=== PATIENT | female | born 1990 | race Caucasian/White ===

== ENCOUNTER → 2018-06-28 | Outpatient (REF) | payer OTHER | LOC: M SFHCLERA 13:41 | PROVIDERS: ATTEND Physician Assistant | DX: J02.9 Acute pharyngitis, unspecified (principal) ==

== ENCOUNTER 2018-09-23 12:05 | Outpatient (CLI) | payer OTHER ==
[~2018-09-23] VITALS: Ht 160 cm; Wt 94.4 kg
[2018-09-23 12:27] VITALS: BP 129/75
[2018-09-23] MEDS ORDERED: PRENTAB9 PO (12:53)
[2018-09-23] MEDS ORDERED: MAPA500T2 PO (12:53)
[2018-09-23 13:11] LABS: AMORPHOUS SEDIMENT SMALL (NEGATIVE); APPEARANCE, URINE CLOUDY (CLEAR); BACTERIA, URINE AUTO NEGATIVE (NEGATIVE); BILIRUBIN, URINE AUTO NEGATIVE (NEGATIVE); BLOOD, URINE BLOOD 3+ (NEGATIVE); COLOR, URINE YELLOW (YELLOW); GLUCOSE, URINE (UA) AUTO NEGATIVE (NEGATIVE); KETONE, URINE AUTO NEGATIVE (NEGATIVE); LEUKOCYTE ESTERASE, URINE AUTO TRACE (NEGATIVE); NITRITE, URINE AUTO NEGATIVE (NEGATIVE); PROTEIN, URINE AUTO NEGATIVE (NEGATIVE); RBC, URINE AUTO TNTC /HPF (0-3); SPECIFIC GRAVITY URINE AUTO 1.008 (1.002-1.035); SQUAMOUS EPITHELIAL CELL UR AU 10 /HPF (0-6); UROBILINOGEN, URINE AUTO 0.2 mg/dL (0.0-2.0); WBC, URINE AUTO 6 /HPF (0-3)
[2018-09-23] MEDS ORDERED: LR 1,000 ML IV SCH (13:45)
[2018-09-23] MEDS ORDERED: LR 1,000 ML IV ONE (13:45)
--- NOTE | 2018-09-23 14:15 | NUR ---
1400 hrs reviewed labs surprised no suggestion of uti ph 8.0 sg 1008 negative nitrates bacteria blood tntc. Reexamined patient in fact now pain is at si joint no rebound or pain with percussion not sounding like stone possibly just musculoskeletal Plan Flexeril and await urine c and s,
[2018-09-23] MEDS ORDERED: CYCLOBENZAPRINE 5MG TABLET PO SCH (15:00)
[2018-09-23 15:01] VITALS: BP 123/61
== END 2018-09-23 16:08 | disposition home or self-care (01) ==
LOC: M LDO 12:05
PROVIDERS: ATTEND Obstetrics & Gynecology
DX: O26.893 Other specified pregnancy related conditions, third trimester (principal); M54.9 Dorsalgia, unspecified; Z3A.35 35 weeks gestation of pregnancy
CPT/HCPCS: 59025; 81001; 87086; 96360; 96361; G0378; G0463

== ENCOUNTER 2018-09-23 22:33 | Outpatient (CLI) | payer OTHER ==
[~2018-09-23] VITALS: Ht 160 cm; Wt 95.1 kg
[~2018-09-23 22:33] MED LIST: MAPA500T2 PO; PRENTAB9 PO
[2018-09-23 22:48] VITALS: BP 124/64
--- NOTE | 2018-09-24 09:35 | HPE ---
DATE OF ADMISSION: 09/23/2018 28-year-old, 5, para 2, abortio 2, last period 02/14/2018, expected date of confinement (EDC) 10/24/2018, at 35 and 6 weeks of gestation with a history of significant lower back pain and increased frequency and urgency over the last 24 hour, highly susceptible or likely to be urinary tract infection (UTI). PAST HISTORY: In 2012, at 38 weeks, spontaneous delivery of a female, 6 pounds 7 ounces. In 2014, spontaneous at 8 weeks, used misoprostol. In 2016, spontaneous at 8 weeks. In 2017, at 38 weeks, spontaneous vaginal delivery of a female, 7 pounds. LABS: O positive. HIV negative. Hepatitis negative. RPR nonreactive. Rubella immune. Varicella immune. Pap normal. Gonorrhea and Chlamydia negative. Early GTT 90. 28-week GTT was 112. EXAMINATION: She appears in distress. Lower back pain. Writhing around in quite a bit of pain and holding her sides. Symphysis fundus height is appropriate. Four quadrant bowel sounds are normal. Abdomen is soft. heart is Category I. Sometimes a bit of hyperactivity in the fetus. Temperature 98.0, pulse 85, respirations 18, blood pressure 129/75. Urine is 1.005, pH 8, +1 leukocyte, trace protein, 250 of blood, and cloudy urine. ASSESSMENT: High incidence and suggestive of urinary tract infection. PLAN: To hydrate the patient. IV antibiotics. Send home on prophylactic antibiotics. Followup with test of cure after sensitivity within 10-12 days.
== END 2018-09-23 23:35 | disposition home or self-care (01) ==
LOC: M LDO 22:33
PROVIDERS: ATTEND Obstetrics & Gynecology
DX: O26.893 Other specified pregnancy related conditions, third trimester (principal); M54.5 Low back pain; O47.03 False labor before 37 completed weeks of gestation, third trimester; Z3A.35 35 weeks gestation of pregnancy
CPT/HCPCS: 59025; G0378

== ENCOUNTER 2018-10-27 22:32 | Outpatient (CLI) | payer OTHER ==
[~2018-10-27] VITALS: Ht 160 cm; Wt 97.4 kg
[2018-10-27 22:48] VITALS: BP 132/83
--- NOTE | 2018-10-28 14:39 | DSES ---
DATE OF ADMISSION: 10/27/2018 DATE OF DISCHARGE: 10/28/2018 HISTORY: A 28-year-old 5, para 2, abortus 2, last menstrual period (LMP) 01/17/2018, estimated date of confinement (EDC) 10/24/2018, at 40 and 4, with a history of delivering at 38 weeks times two. Does not have regular contractions. RISK FACTORS: Body mass index (BMI) is 33.5. PAST HISTORY: In 2012, at 38 weeks, spontaneous vaginal delivery female 7 pounds 6 ounces. In 2014, spontaneous . In 2016, spontaneous . In 2017, at 38 weeks, spontaneous vaginal delivery female 7 pounds. LABORATORY DATA: O positive, HIV negative, hepatitis negative, rapid plasma reagin (RPR) negative, rubella immune. Varicella immune. Pap normal. Gonorrhea and chlamydia are negative. 1-hour glucose 90 at 28 weeks. Glucose tolerance test (GTT) 112. Group B Streptococcus (GBS) is negative. VITAL SIGNS: Blood pressure 132/83, respirations 16, pulse 86, temperature 98.1. Urine is 10/15, pH 7 and the rest is negative. On examination, she has a category one strip with accelerations, no decelerations, occasional tightenings, a moderate variability and baseline was normal. Cervix is still 4 cm posterior, high, thick, no chain, no vaginal bleeding or discharge. No change in the cervix since two weeks ago. Patient was discharged with instructions. She has an induction of labor booked for 10/31/2018. The patient was discharged undelivered.
== END 2018-10-28 00:15 | disposition home or self-care (01) ==
LOC: M LDO 22:32
PROVIDERS: ATTEND Obstetrics & Gynecology
DX: O26.893 Other specified pregnancy related conditions, third trimester (principal); O47.1 False labor at or after 37 completed weeks of gestation; Z3A.40 40 weeks gestation of pregnancy
CPT/HCPCS: 59025; G0378; G0463

== ENCOUNTER 2018-10-30 15:17 | Inpatient (IN) | payer OTHER ==
[~2018-10-30] VITALS: Ht 160 cm; Wt 96.6 kg
[2018-10-30] VITALS (15 sets, daily range): BP systolic 99–146; BP diastolic 51–90
[2018-10-30] MEDS ORDERED: LACTATED RINGER'S 1000 ML IV STA (15:37)
[2018-10-30 16:01] LABS: BASO % 0.3 % (0.0-1.0); EOS # 0.1 10^3/uL (0.0-0.50); EOS % 0.5 % (0.0-3.0); HEMATOCRIT 39.4 % (36.0-47.0); HEMOGLOBIN 13.4 g/dl (12.0-15.5); LYMPH # 2.3 10^3/uL (1.5-6.5); LYMPH % 16.9 % (24.0-44.0); MEAN CORPUSCULAR HEMOGLOBIN 30.1 pg (27.0-33.0); MEAN CORPUSCULAR VOLUME 88.5 fl (80.0-96.0); MONO # 0.6 10^3/uL (0.0-0.8); NEUTROPHILS # 10.8 10^3/uL (1.8-7.7); NEUTROPHILS % 77.6 % (36.0-66.0); PLATELET COUNT, AUTOMATED 164 10^3/uL (150-450); RED BLOOD COUNT 4.45 10^6/uL (4.00-5.40); WHITE BLOOD COUNT 13.8 10^3/uL (4.0-10.0)
[2018-10-30] MEDS ORDERED: FENTANYL 2MCG/ML ROPIVACAINE 0.2% IN 0.9% NACL 100ML IVBAG As Ordered ONE (16:28)
--- NOTE | 2018-10-30 17:27 | HPEPDOC ---
Obstetrical History & Physical General Date of Admission Oct 30, 2018 at 15:40 History of Present Illness 28 yo at 40+6 weeks gestation by LMP of 17Jan2018 c/w 9+0 week US on 27Mar2018 presents to L&D with regular, painful contractions that have worsened throughout the day. She denies any vaginal bleeding or leakage of fluid. She endorses excellent movement. She was scheduled for IOL tomorrow for late term gestation. Chief Complaint: Contractions, term Information Provided By: Patient Age: 28 : 5 Term: 2 Pre-term: 0 Abortions: 2 Livin Care Care: Good Care Dating Final EDC: Oct 24, 2018 Final EDC for Daily Update: Oct 24, 2018 Final EDC by: LMP (LMP of 17Jan2018) LMP: Jan 17, 2018 1st Trimester Date: Mar 27, 2018 (9+0 week US on 27Mar2018) Antepartum Course Diagnos(e)s Obesity --> BMI ~37 Past Medical History Past Obstetrical History : Past Obstetrical History: Multigravida (2 term SVDs with pelvis proven to 7lbs last delivery in 2016, 2 prior SABs.) Type of Delivery: Spontaneous Vaginal Del. Complications: No PLUGMAN History: No pertinent history Past Medical History Medical History Obesity Surgical History: Denies/None Family History Significant Family History: No pertinent family hx Family History Non contributory Social History Marital Status: Family situation: Spouse/partner home Psychosocial History: No pertinent psych hx * Smoker: non-smoker Alcohol: Denies Drugs: denies Imunizations Tdap status: current Influenza Status: needs Allergies Coded Allergies: No Known Allergies (Unverified , 09/23/18) Medications Scheduled No.137/Iron/Folic Acd ( Vitamin Tablet) 1 Each Tablet, 1 TAB PO DAILY Physical Examination Physical Examination GENERAL: Alert and oriented times three. ABDOMEN: Gravid and non-tender to touch. FETUS: Is vertex (VTX) by sterile vaginal examination (SVE) EXTREMITIES: No edema. Vital Signs/I&O Vital Signs Date Time Temp Pulse Resp B/P (MAP) Pulse Ox O2 Delivery O2 Flow Rate FiO2 10/30/18 16:30 80 18 138/78 (98) 10/30/18 15:37 98.0 Laboratory Data 24H LABS Laboratory Tests 2 10/30/18 15:47: Serology Scanned Report Hepatitis B Testing 10/30/18 15:51: Immature Granulocyte % (Auto) 0.7, White Blood Count 13.8H, Red Blood Count 4.45 , Hemoglobin 13.4, Hematocrit 39.4, Mean Corpuscular Volume 88.5, Mean Corpuscular Hemoglobin 30.1, Mean Corpuscular Hemoglobin Concent 34.0, Red Cell Distribution Width 15.5H, Platelet Count 164, Neutrophils (%) (Auto) 77.6H, Lymphocytes (%) (Auto) 16.9L, Monocytes (%) (Auto) 4.0, Eosinophils (%) (Auto) 0.5, Basophils (%) (Auto) 0.3, Neutrophils # (Auto) 10.8H, Lymphocytes # (Auto) 2.3, Monocytes # (Auto) 0.6, Eosinophils # (Auto) 0.1, Basophils # (Auto) 0.0, Nucleated Red Blood Cells % (auto) 0.0 CBC/BMP Laboratory Tests 10/30/18 15:51 Red Blood Count 4.45, Mean Corpuscular Volume 88.5, Mean Corpuscular Hemoglobin 30.1, Mean Corpuscular Hemoglobin Concent 34.0, Red Cell Distribution Width 15.5 H, Neutrophils (%) (Auto) 77.6 H, Lymphocytes (%) (Auto) 16.9 L, Monocytes (%) (Auto) 4.0, Eosinophils (%) (Auto) 0.5, Basophils (%) (Auto) 0.3, Neutrophils # (Auto) 10.8 H, Lymphocytes # (Auto) 2.3, Monocytes # (Auto) 0.6, Eosinophils # (Auto) 0.1, Basophils # (Auto) 0.0 Urine Culture: No Growth Pertinent Laboratoy Data Blood Type: O+ RBC Antibody Screen: Negative HIV: Negative Hepatitis B: Negative Hepatitis C: Unknown Rapid Plasma Reagin: Nonreactive Rubella: Immune Varicella: Immune Chlamydia/Gonorrhea: Negative Group B Streptococcus: Negative Quad Screen Test: Negative Cystic Fibrosis: Negative Glucose Tolerance Test: 112 Anatomy Ultrasound Placenta Location: Posterior Normal Anatomy: Yes Placenta Previa: No Steroid Therapy Steroid Therapy: No Vaginal Examination Dilation: 5 cm Effacement: 90% Station: -1 Cervical Consistency: Soft Cervical Position: Middle Presentation: Cephalic presentation Position: Four quadrants, Vertex (occiput) Assessment Heart Rate (FHR): 125 Variability: Moderate Accelerations: Positive Decelerations: None Tocometer Contractions: Yes Frequency: regular Duration: greater than 60 seconds Strength: palpated as moderate Assessment/Plan Assessment 28 yo at 40+6 weeks gestation presented to L&D in labor. Plan Admit to L&D for expectant management of labor. Will augment as clinically indicated. Apply IV fluids. GBS negative. Patient may have epidural if desired. Anticipate . DO ASIYA Silva CHRISTOPHER J. DO Oct 30, 2018 17:27
[2018-10-30] MEDS ORDERED: NALOXONE INJ 0.4 MG/1 ML VIAL (J2310) IV PRN (18:15)
[2018-10-30] MEDS ORDERED: FENTANYL/ROPIVACAINE/NACL BAG 100 ML EPIDURAL SCH (18:15)
[2018-10-30] MEDS ORDERED: LACTATED RINGER'S 1000 ML IV PRN (18:15)
[2018-10-30] MEDS ORDERED: diphenhydrAMINE INJ 50MG/ML VIAL (J1200) IV PRN (18:15)
[2018-10-30] MEDS ORDERED: ePHEDrine SULFATE 25 MG/5 ML(5MG/ML) SYRINGE IV PRN (18:15)
[2018-10-30] MEDS ORDERED: EPIDURAL/PCA KEYS XX PRN (18:15)
[2018-10-30] MEDS ORDERED: EPIDURAL COMMENT XX SCH (18:15)
[2018-10-30] MEDS ORDERED: REFRIGERATOR IV KEYS XX PRN (18:15)
[2018-10-30] MEDS ORDERED: ONDANSETRON 4MG/2ML VIAL (J2405) IV PRN (18:15)
--- NOTE | 2018-10-30 18:25 | IPNPDOC ---
Text Note Date of Service The patient was seen on 10/30/18. NOTE Patient comfortable with epidural in place. Cervix: /-1. AROM performed productive of clear fluid. FHR Cat I, though contractions have spaced considerably. Continue with current management. Heydi Treviño DO VS,Los, I+O VS, Los, I+O Laboratory Tests 10/30/18 15:51 Red Blood Count 4.45, Mean Corpuscular Volume 88.5, Mean Corpuscular Hemoglobin 30.1, Mean Corpuscular Hemoglobin Concent 34.0, Red Cell Distribution Width 15.5 H, Neutrophils (%) (Auto) 77.6 H, Lymphocytes (%) (Auto) 16.9 L, Monocytes (%) (Auto) 4.0, Eosinophils (%) (Auto) 0.5, Basophils (%) (Auto) 0.3, Neutrophils # (Auto) 10.8 H, Lymphocytes # (Auto) 2.3, Monocytes # (Auto) 0.6, Eosinophils # (Auto) 0.1, Basophils # (Auto) 0.0 Vital Signs Date Time Temp Pulse Resp B/P (MAP) Pulse Ox O2 Delivery O2 Flow Rate FiO2 10/30/18 18:01 81 18 132/64 (86) 10/30/18 15:37 98.0 HEYDI TREVIÑO DO Oct 30, 2018 18:25
[2018-10-30] MEDS ORDERED: OXYTOCIN 30 UNITS IN 0.9% NaCl 500ML IV BAG (J2590) As Ordered ONE (19:56)
[2018-10-30] MEDS ORDERED: OXYTOCIN DRIP 30 UNITS in APPROPRIATE DILUENT 1 EA IV SCH (20:51)
--- NOTE | 2018-10-30 20:57 | DNPDOC ---
[facility] Delivery Note Delivery Note DATE OF DELIVERY: 30Oct2018 at ~2030 PREDELIVERY DIAGNOSIS: 40+6 weeks gestation and active labor POST DELIVERY DIAGNOSIS: Delivered. PROCEDURE: Spontaneous vaginal delivery CANCER SPEC: Dr. Treviño ANESTHESIA: Epidural ESTIMATED BLOOD LOSS: 200 mL. FINDINGS: Viable male infant, 8lbs 10oz (3900 grams), Apgars 9/9 DELIVERY SUMMARY: Presented to room as patient felt a strong urge to push. Cervical exam revealed fetus at +2 station. The bed was broken down and she was prepped for delivery. With excellent maternal pushing effort her delivered. presentation was FEROZ with restitution to LOT. The right anterior shoulder delivered with gentle traction followed easily by the remainder of the body. There was a doubling footling cord that was delivered through and reduced manually. The was dried and stimulated on the field and a bulb suction was used. The was then placed on the maternal abdomen and cried vigorously. The three vessel cord was then clamped and cut by the FOB after appropriate time delay. Third stage was then completed with gentle traction on the cord and it was productive of an intact placenta. The uterine fundus was firmed with massage and pitocin was administered via IV bolus. Inspection of the vagina, perineum, and cervix revealed no lacerations. The fundus was palpated again and was firm. Sponge, instrument, and needle counts were correct X2. Mother stable when I left the room. DO ASIYA Silva CHRISTOPHER J. DO Oct 30, 2018 20:57
[2018-10-30] MEDS ORDERED: ACETAMINOPHEN TAB 650MG DOSE (2X325MG) PO PRN (21:00)
[2018-10-30] MEDS ORDERED: PROMETHAZINE 25 MG TAB PO PRN (21:00)
[2018-10-30] MEDS ORDERED: IBUPROFEN 600 MG TAB PO PRN (21:00)
[2018-10-30] MEDS ORDERED: RHOGAM 300 MCG (1500 IU) INJ (J2790) IM SCH (21:00)
[2018-10-30] MEDS ORDERED: MEASLES,MUMPS,RUBELLA VACCINE INJ (MMR-II) (90707) SC SCH (21:00)
[2018-10-30] MEDS ORDERED: DIBUCAINE 1% OINTMENT 30GM TOP PRN (21:00)
[2018-10-30] MEDS ORDERED: DOCUSATE SODIUM 100 MG CAP PO PRN (21:00)
[2018-10-30] MEDS ORDERED: ACETAMINOPHEN 500 MG TAB PO PRN (21:00)
[2018-10-31] MEDS: IBUPROFEN 800 MG TAB PO PRN ×3 (01:30→20:12)
[2018-10-31 06:00] VITALS: BP 147/67
--- NOTE | 2018-10-31 07:01 | IPNPDOC ---
Progress Note Date of Service: Oct 31, 2018 Progress Note 28 yo G5 now P3 PPD#1 s/p uncomplicated yesterday evening at ~2030 after being admitted for active labor. She is currently recovering on the swenson. Odette reports feeling well this AM and has no complaints. She is ambulating, voiding, tolerating a regular diet, has minimal pain, and minimal lochia. She is without issues. Vitals - VSS, a couple mild elevations in BP but nothing severe, afebrile, non tachycardic General - AAOX3, sitting up in bed, NAD, pleasant and conversant Abdomen - Fundus firm at U-2. No fundal tenderness. Extremities - No edema UO - appropriate. Ms. Henson is doing well and is making an appropriate recovery. Discharge medications ordered at [facility]. Likely discharge home era rrow. She desires circumcision of her son today. Continue routine care. All questions answered. Miki Treviño, DO VS, I&O, 24H, Analie Vital Signs/I&O Vital Signs Date Time Temp Pulse Resp B/P (MAP) Pulse Ox O2 Delivery O2 Flow Rate FiO2 10/31/18 06:00 98.5 80 18 147/67 (93) I&O- Last 24 Hours up to 6 AM 10/31/18 06:00 Intake Total 1635 ml Output Total 550 ml Balance 1085 ml Laboratory Data 24H LABS Laboratory Tests 2 10/30/18 15:47: Serology Scanned Report Hepatitis B Testing 10/30/18 15:51: Immature Granulocyte % (Auto) 0.7, White Blood Count 13.8H, Red Blood Count 4.45, Hemoglobin 13.4, Hematocrit 39.4, Mean Corpuscular Volume 88.5, Mean Corpuscular Hemoglobin 30.1, Mean Corpuscular Hemoglobin Concent 34.0, Red Cell Distribution Width 15.5H, Platelet Count 164, Neutrophils (%) (Auto) 77.6H, Lymphocytes (%) (Auto) 16.9L, Monocytes (%) (Auto) 4.0, Eosinophils (%) (Auto) 0.5, Basophils (%) (Auto) 0.3, Neutrophils # (Auto) 10.8H, Lymphocytes # (Auto) 2.3, Monocytes # (Auto) 0.6, Eosinophils # (Auto) 0.1, Basophils # (Auto) 0.0, Nucleated Red Blood Cells % (auto) 0.0 CBC/BMP Laboratory Tests 10/30/18 15:51 Red Blood Count 4.45, Mean Corpuscular Volume 88.5, Mean Corpuscular Hemoglobin 30.1, Mean Corpuscular Hemoglobin Concent 34.0, Red Cell Distribution Width 15.5 H, Neutrophils (%) (Auto) 77.6 H, Lymphocytes (%) (Auto) 16.9 L, Monocytes (%) (Auto) 4.0, Eosinophils (%) (Auto) 0.5, Basophils (%) (Auto) 0.3, Neutrophils # (Auto) 10.8 H, Lymphocytes # (Auto) 2.3, Monocytes # (Auto) 0.6, Eosinophils # (Auto) 0.1, Basophils # (Auto) 0.0 MIKI TREVIÑO DO Oct 31, 2018 07:01
[2018-10-31] MEDS: PRENATAL VITAMINS CHEWABLE TABLET PO SCH (08:51)
[2018-10-31 18:00] VITALS: BP 129/58
[2018-11-01 05:32] VITALS: BP 126/63
[2018-11-01] MEDS: IBUPROFEN 800 MG TAB PO PRN (07:40)
[2018-11-01] MEDS: PRENATAL VITAMINS CHEWABLE TABLET PO SCH (07:40)
--- NOTE | 2018-11-01 07:49 | NUR ---
[facility] Progress Note Odette is a 28 y/o G5 now P3 s/p uncomplicated on the evening of 31 October after being admitted for active labor. She is currently recovering on the swenson and reports feeling well this AM and has no complaints. She is ambulating, voiding, tolerating a regular diet, has minimal pain, and minimal lochia. She is without difficulty. Vitals - VSS, afebrile, non tachycardic General - AAOX3, sitting up in bed, NAD, pleasant and conversant Abdomen - Fundus firm at U-2. No fundal tenderness. Lochia-scant rubra Extremities - No edema Ms. Henson is doing well and is making an appropriate recovery. Outpatient medication rx placed for [facility] outpatient pharmacy. Reviewed dc teaching to include warning signs and return precautions, safe NBN sleep and reminded to schedule f/u appt with [facility] in 6 weeks. She reports understanding w/o questions/concerns. DC home today with NBN. All questions answered.
--- NOTE | 2018-11-01 07:53 | NUR ---
[facility] OB Discharge Summary: : 5 Parity: 3 VRDL: NR RH:POS Labor: uncomplicated; term Delivery: s/p 31 October 2018, uncomplicated Anesthesia: PHOEBE Episiotomy: None A/P: Routine PP course Admission Diagnosis: term labor Discharge Diagnosis: delivered Condition at Discharge: stable Discharge instructions: dc to home with 6 week f/u at OBGYN Activity: ad tosha Diet: regular Medications: as rx'd
[2018-11-01] MEDS ORDERED: IBUP80TA PO (07:56)
[2018-11-01] MEDS ORDERED: ACET-683 PO (07:56)
== END 2018-11-01 11:25 | disposition home or self-care (01) | DRG 807 ==
LOC: M LDO 15:17 → M LDI 15:40 → M OBS 23:04
PROVIDERS: ADMIT Obstetrics & Gynecology; ATTEND Obstetrics & Gynecology
PROC: 10E0XZZ Delivery of Products of Conception, External Approach (ICD-10-PCS; principal; 2018-10-30)
PROC: 10907ZC Drainage of Amniotic Fluid, Therapeutic from Products of Conception, Via Natural or Artificial Opening (ICD-10-PCS; 2018-10-30)
DX: O48.0 Post-term pregnancy (principal); Z37.0 Single live birth; Z3A.40 40 weeks gestation of pregnancy; O99.214 Obesity complicating childbirth; E66.9 Obesity, unspecified; O69.82X0 Labor and delivery complicated by other cord entanglement, without compression, not applicable or unspecified